=== PATIENT | male | born 1960 | race Caucasian/White ===

== ENCOUNTER 2018-04-30 19:20 | Emergency (ER) | payer SELFPAY ==
[~2018-04-30 19:20] MED LIST: INSLAN SQ; INSU100C3 SQ; PERCT10 PO
[2018-04-30 19:54] LABS: GLUCOSE,POINT OF CARE 120 MG/DL (70-110)
== END 2018-04-30 20:40 | disposition left against medical advice (07) ==
LOC: EMS 19:21
DX: E16.2 Hypoglycemia, unspecified (principal); Z53.21 Procedure and treatment not carried out due to patient leaving prior to being seen by health care provider